=== PATIENT | female | born 1965 | race Caucasian/White ===

== ENCOUNTER 2019-04-27 13:30 | Inpatient (IN) ==
[2019-04-27] MEDS ORDERED: NS 1,000 ML IV ONE ×2 (13:46→14:58)
--- NOTE | 2019-04-27 14:07 | PROVIDER DOCUMENTATION ---
HPI-General Adult - General Chief Complaint: High Blood Sugar Stated Complaint: BS HIGH Time Seen by Provider: 04/27/19 13:42 Source: patient Allergies/Adverse Reactions: Patient Allergies Allergy/AdvReac Type Severity Reaction Status Date / Time No Known Allergies Allergy Verified 04/16/17 09:11 Home Medications: Home Medication List Medication Instructions Recorded Confirmed Last Taken Type Carvedilol 12.5 mg PO BID 01/22/17 04/16/17 04/15/17 History Fluoxetine HCl [Prozac] 80 mg PO DAILY 01/22/17 04/16/17 01/24/17 04:15 History 80 Furosemide 40 mg PO DAILY 01/22/17 04/16/17 01/23/17 04:30 History 40 Levofloxacin [Levaquin] 500 mg PO DAILY #7 tablet 04/16/17 Unknown Rx Naproxen Sodium [Anaprox Ds] 550 mg PO BID #20 tablet 04/16/17 Unknown Rx Cyclobenzaprine [Flexeril] 10 mg PO Q6H PRN #14 tablet 06/30/17 Unknown Rx Hydrocodone/APAP 5 mg/325 mg 10 each PO Q6H PRN PRN 10/27/17 10/27/17 Unknown History [[place]-5] Meloxicam [Mobic] 15 mg PO DAILY #20 tab 10/27/17 Unknown Rx - History of Present Illness -Gen Adult Nature of Presenting Problems: Patient is a 53yo F who presents with c/o high blood sugar. Patient reports she takes Metformin BID for DM2. States she does not monitor her sugars at home. Reports for the past 3 days, she has been feeling fatigued, nauseous, thirsty, and has had to urinate frequently. States she checked her BG 3 days ago and it read over 500. Reports she called her PCP's office and was instructed to increase her Metformin. Reports this morning, she felt "really yucky" and checked her BG and her meter just read "High." Patient reports she called her PCP again who referred her to the ER. Patient denies hx of DKA or having to be hospitalized d/t high blood sugar. Patient denies fever/chills, cough, vomiting/diarrhea, dysuria, CP, or SOB. Location of Pain/Injury: reports: none Pain Radiation: reports: no radiation Quality of Pain: reports: none Severity: reports: moderate Onset/Duration: reports: 3 days ago Timing: reports: still present Context/Activities at Onset: reports: none Modifying Factors: improves with: nothing Associated Symptoms: reports: fatigue, nausea. denies: chest pain, cough, diaphoresis, diarrhea, dizziness, fever/chills, headaches, loss of appetite, sh ortness of breath, vomiting, weakness Similar Symptoms Previously?: No Recently seen or treated by another doctor?: No - Diabetes Related Context Context: reports: high blood sugar Review of Systems - Adult - REVIEW OF SYSTEMS - ADULT Constitutional: reports: no symptoms reported. denies: chills, fever Eyes: reports: no symptoms reported. denies: decreased vision, blurred vision, double vision Ears, Nose, Mouth & Throat: reports: no symptoms reported. denies: ear pain, throat pain Cardiovascular: reports: no symptoms reported. denies: chest pain, palpitations Respiratory: reports: no symptoms reported. denies: cough, shortness of breath Gastrointestinal: reports: see HPI, nausea. denies: abdominal pain, diarrhea, vomiting Genitourinary: reports: see HPI, frequency. denies: dysuria Musculoskeletal: reports: no symptoms reported Integumentary: reports: no symptoms reported Neurological: reports: no symptoms reported. denies: dizziness/vertigo, headache/migraines, paresthesia, syncope Psychiatric: reports: no symptoms reported Endocrine: reports: see HPI, increased thirst, polyuria Past History - Adult - PAST MEDICAL HISTORY-ADULT Review of Records: reports: Nursing Assessment Review, Medications Reviewed Major Childhood Illnesses: reports: denies history Cardiovascular: reports: CAD, CHF, HTN Respiratory: reports: denies history Gastrointestinal: reports: GERD Genitourinary: reports: kidney disease (stage 3 per pt), kidney stones Musculoskeletal: reports: denies history Neurological: reports: denies history Psychiatric: reports: ptsd Endocrine/Immune: reports: Diabetes Diabetes controlled by:: PO Meds Other Conditions: reports: denies history - PRIOR SURGERIES/PROCEDURES Surgical/Procedure History: reports: cholecystectomy, hysterectomy - IMMUNIZATION STATUS Childhood Immunizations: See Nurse Assessment Flu Vaccine: See Nurse Assessment - FAMILY HISTORY Family History: reviewed, not pertinent Physical Exam-General - PHYSICAL EXAM-ADULT Initial Vital Signs Reviewed: Yes - CONSTITUTIONAL General Appearance: appears well, alert, no apparent distress. negative: lethargic, slow to respond, obtunded - EYES Eyes: PERRL/EOMI, pink conjunctivae. negative: EOM palsy, scleral icterus - HEAD, EARS, NOSE, MOUTH & THROAT HENMT: normocephalic/atraumatic, moist mucous membranes - NECK Neck: full range of motion, supple, normal inspection - RESPIRATORY Respiratory: chest non-tender, lungs clear, normal breath sounds, no pleuratic chest pain, no respiratory distress, no accessory muscle use. negative: crackles, rales, rhonchi, stridor, wheezing - CARDIOVASCULAR Cardiovascular: regular rate, rhythm, no gallop - GASTROINTESTINAL (ABDOMEN) Abdominal Exam: normal bowel sounds, non tender, soft - MUSCULOSKELETAL Back Exam: normal inspection Extremity: normal range of motion, non-tender, normal gait, normal inspection, pelvis stable - SKIN Integumentary: normal color, warm/dry. negative: cyanosis, jaundice, pallor - NEUROLOGIC Neurologic: grossly normal. negative: abnormal gait, aphasia, EOM palsy - PSYCHIATRIC Psych/Mental Status: normal mood/affect, normal thought content, normal thought process, oriented x 3 Progress - PLAN OF CARE/RESULTS Progress/Plan/Lab Results: Vital Signs - 8 hr 04/27/19 13:33 Temperature 98.4 F Pulse Rate 77 Respiratory Rate 18 Blood Pressure 136/87 O2 Sat by Pulse Oximetry 93 L Orders Category Date Time Status Finger Stick Blood Sugar (ED) DIRECTED Care 04/27/19 13:47 Active CHEST-2 VIEWS [RAD] Stat Exams 04/27/19 13:46 Ordered ABG [RESP] Routine Lab 04/27/19 13:46 Ordered CBC WITH DIFF [HEME] Stat Lab 04/27/19 13:46 Uncollected COMPREHENSIVE METABOLIC PANEL [CHEM] Stat Lab 04/27/19 13:46 Uncollected URINALYSIS [URINALYSIS] Stat Lab 04/27/19 13:46 Uncollected 0.9% Sodium Chloride Inj [Ns] 1,000 ml Med 04/27/19 13:46 Active IV 999 mls/hr EKG [EKG] Stat Ther 04/27/19 13:46 Ordered Lab results and plan of care discussed with patient who verbalizes understanding. Patient notified of need for admission for hyperglycemia, dehydration, and hyponatremia. She verbalizes understanding and agrees with plan. Result Diagrams: 04/27/19 14:03 04/27/19 14:03 - XRAY 1 XRAY: Bilateral XRAY Study: Chest Impression: See EMR Report ([facility] - [address], [address], [place] [address] [facility] - [address] , [place] [address] Department of Imaging Patient: DIRK CONTRERAS Date: 04/27/19MR#: [id number] : 1965ADM Status: PRE ERAcct#: [id number] Age/Sex: 53/FRoom/Bed: Loc: ED Ordering Physician: Ritu Lanier Family Physician: Brad Tinajero MD Reason for Procedure: Hyperglycemia ___ Signed EXAM: CHEST-2 VIEWS 04/27/2019 HISTORY: Hyperglycemia TECHNIQUE: PA and lateral chest COMMENT: There is no evidence of acute cardiac or pulmonary disease. Compared to 06/30/2017 there has been no significant change. IMPRESSION: No evidence of acute disease. Electronically signed by Damien Delarosa 04/27/2019 2:23 PM 04/27/19 1423 Interpreting Physician: Damien Delarosa MD Dictated Date/Time: 04/27/19 1422 cc: Ritu Lanier; Brad Tniajero MD) - CONSULTS/PCP/HOSPITALIST Notification #1 *Consult/PCP/Hospitalist*: BOLIVAR Hodges Time Discussed: 15:35 Reason/Comments: Hyperglycemia, Hyponatremia, Dehydration Consult Disposition: Admit #2 Consult: MD Isaias Time Discussed: 15:57 Reason/Comments: Pt requested he be notified of her admission Consult Disposition: other (Will consult if needed) Departure - Departure Date of Disposition Decision: 04/27/19 Time of Disposition Decision: 15:37 DIAGNOSIS: Dehydration, Hyperglycemia, Hyponatremia Disposition: ADMITTED INPATIENT 09 Certified Medical Emergency: Emergent Condition: Stable Referrals and Follow-Ups: Brad Tinajero MD [Primary Care Provider] - - Critical Care Note This patient required my direct & personal management of CC.: No Attestation - Physician/ FATMATA Attestation Patient care was provided by Advanced Practice Provider:: Yes Advanced Practice Provider:: Zuri Dixon Advanced Practice Provider documentation review:: The Mid-level provider documentation, treatment plan and medical decision making was reviewed by the physician who agrees with all treatment and medical decision making by the MLP. The physician spent face to face time with patient:: No Advanced Practice Provider documentation review:: Supervising physician onsite and consulted in the evaluation and care of this patient. The physician did not have a face to face encounter with the patient.
[2019-04-27 14:12] LABS: ALLEN TEST NO; BE 1.4 mmoll (-3.0-3.0); BLOOD TYPE ARTERIAL; HCO3-(ACT) 25.8 mmoll (20.0-26.0); METHB 0.8 % (0.0-1.5); O2(CT) 20.9 mL/dL (15.0-23.0); O2HB 90.2 % (95.0-99.0); PCO2(98.6) 46 mmHg (35-45); PO2(98.6) 70 mmHg (60-100); SAMPLE BLOOD; SAO2 96.9 % (95.0-100.0); THB 16.5 g/dL (11.5-17.4); pH(98.6) 7.38 (7.35-7.45)
[2019-04-27 14:13] LABS: URINE SOURCE CLEAN CATCH
[2019-04-27 14:14] LABS: MODALITY ROOM AIR
[2019-04-27 14:19] LABS: BASO# 0.04 X1000 (0.0-0.2); BASO% 0.7 % (0.0-0.8); EOS# 0.09 X1000 (0.0-0.7); EOS% 1.7 % (0.0-10.0); HEMATOCRIT 47.3 % (37.0-47.0); HEMOGLOBIN 16.4 g/dL (12.0-16.0); LYMPH# 1.74 X1000 (1.2-3.4); LYMPH% 32.2 % (20.5-51.1); MCHC 34.7 g/dL (33-37); MCV 86.6 FL (81-99); MONO# 0.42 X1000 (0.11-0.59); MONO% 7.8 % (1.7-9.3); MPV 12.9 FL (7.4-10.4); NEUT# 3.12 X1000 (1.4-6.5); NEUT% 57.6 % (42.2-75.2); PLT 178 X1000 (130-400); RBC 5.46 XMIL (4.2-5.4); RDW 12.6 % (11.5-14.5); WBC 5.41 X1000 (4.8-10.8)
[2019-04-27 14:20] LABS: BILIRUBIN URINE NEGATIVE (NEGATIVE); BLOOD URINE NEGATIVE (NEGATIVE); COLOR STRAW; GLUCOSE URINE >1000 mg/dL (NEGATIVE); KETONE URINE NEGATIVE (NEGATIVE); LEUKOCYTES URINE NEGATIVE (NEGATIVE); NITRITE URINE NEGATIVE (NEGATIVE); PH URINE 5.5; PROTEIN URINE NEGATIVE (NEGATIVE); SP GRAVITY URINE 1.023; TURBIDITY URINE CLEAR (CLEAR); UROBILINOGEN URINE NORMAL (NORMAL)
[2019-04-27 14:22] LABS: UR EPITHELIAL CELLS <10 /HPF (<10); URINE BACTERIA NEGATIVE /HPF; URINE RBC <10 /HPF (<10); URINE WBC <10 /HPF (<10)
--- NOTE | 2019-04-27 14:25 | Diag Imaging Result Doc PS360 ---
EXAM: CHEST-2 VIEWS 04/27/2019 HISTORY: Hyperglycemia TECHNIQUE: PA and lateral chest COMMENT: There is no evidence of acute cardiac or pulmonary disease. Compared to 06/30/2017 there has been no significant change. IMPRESSION: No evidence of acute disease. Electronically signed by Damien Delarosa 04/27/2019 2:23 PM
[2019-04-27 14:54] LABS: ALB/GLOB RATIO 1.3; ALBUMIN 4.4 g/dL (3.5-5.0); CALCIUM 9.9 mg/dL (8.8-10.2); CREATININE 1.5 mg/dL (0.5-0.9); POTASSIUM 3.7 mmol/L (3.5-5.1); TOTAL BILIRUBIN 0.56 mg/dL (0.20-1.00); TOTAL PROTEIN 7.8 g/dL (6.3-8.3)
[2019-04-27] MEDS ORDERED: HUMULIN R IV ONE (14:58)
[2019-04-27] MEDS ORDERED: HUMULIN R 100 UNIT in NS 100 ML IV SCH (16:00)
--- NOTE | 2019-04-27 16:36 | EKG Report ---
Test Performed on : 04/27/2019 4:32:20 PM Test Reason : DKA Blood Pressure : / mmHG Vent. Rate : 054 BPM Atrial Rate : 054 BPM P-R Int : 140 ms QRS Dur : 092 ms QT Int : 450 ms P-R-T Axes : 032 055 079 degrees QTc Int : 426 ms Sinus bradycardia. with sinus arrhythmia. Nonspecific ST and T wave abnormality Abnormal ECG When compared with ECG of 22-JAN-2017 13:12, premature ventricular complexes. are no longer present Vent. rate has decreased BY [address] no longer depressed in Anterior leads T wave inversion less evident in Anterolateral leads Unconfirmed Result
--- NOTE | 2019-04-27 17:29 | ED EKG INTERP ---
This chart was entered by Stefanie Moreland Scribe, acting as scribe for Lincoln Marinelli MD. EKG Interpretation - EKG Time of EKG reading by physician:: 16:32 EKG Read and Signed by:: Lincoln Marinelli EKG Interpretation (*Must complete 3 of following elements*): Abnormal Rate: 54 Rhythm: sinus bradycardia with sinus arrhythmia [place]: normal [place] Interval: normal Comments: nonspecific ST and T wave abnormality. Attestation - Physician/ FATMATA Attestation Patient care was provided by Advanced Practice Provider:: Yes Advanced Practice Provider:: Zuri Dixon Advanced Practice Provider documentation review:: The Mid-level provider documentation, treatment plan and medical decision making was reviewed by the physician who agrees with all treatment and medical decision making by the P. The physician spent face to face time with patient:: No Advanced Practice Provider documentation review:: Supervising physician onsite and consulted in the evaluation and care of this patient. The physician did not have a face to face encounter with the patient. This chart was documented by the indicated scribe, (Stefanie Moreland Scribe) and accurately reflects the services I performed and decisions made by , Lincoln Marinelli MD, as attested by the provider's signature.
[2019-04-27] MEDS ORDERED: NICODERM PATCH TD PRN (19:15)
--- NOTE | 2019-04-27 19:40 | HISTORY AND PHYSICAL ---
HISTORY OF PRESENT ILLNESS: This is a 53-year-old female with type 2 diabetes, who came in from home with elevated blood sugar. She is a diabetic patient. She sees Dr. Brad Tinajero as an outpatient. She also sees Dr. Esparza for chronic renal failure, although her kidney function she does have some mild insufficiency. She is stage 3 actually, but in any case the patient has noted hyperglycemia in the last 24 hours. She says she is usually controlled on metformin, but I question taking that with her renal failure. It may not be a little risky, but her previous kidney function, we do not have much data here. It was in 2017. She came in. She has had nausea, vomiting. No fevers, no chills. She is uncomfortable, and came in for evaluation. She is not in DKA. She has hyperosmolar nonketotic hyperglycemia and that is what she came in for. In any case, her sugar when she initially came in was 850. Her creatinine was 1.5. Her gap was only 16, but her bicarbonate is 26. Serum ketones, I am not really sure they were done. She is not acidotic, so this was felt to be just plain hyperglycemia, but she is definitely hemoconcentrated. In any case the patient was admitted for HONK, although she is not comatose at this point. PAST MEDICAL HISTORY: 1. Chronic renal failure. At this point she is stage 3B. 2. Type 2 diabetes. At this point noninsulin-dependent. 3. Degenerative joint disease of the spine. PAST SURGICAL HISTORY: 1. She has had a cholecystectomy. 2. Hysterectomy. FAMILY HISTORY: Positive for diabetes and endstage renal in her mother. SOCIAL HISTORY: No tobacco or ethanol. She has a . A 1/9-izsy-r-day smoker. No drugs. No alcohol. ALLERGIES: No known drug allergies. MEDICATIONS: She is on several but these have not been verified. Some of these have not been in a while, and she is not currently on metformin so I am not sure how compliant she is. REVIEW OF SYSTEMS: She reports about a 3-pound weight loss in the last month. No chest pain. No shortness of breath. Nausea and vomiting as described. No dysuria, but she has polyuria and polydipsia. Not polyphasia, per se. Otherwise negative 10-point review of systems. PHYSICAL EXAMINATION: VITAL SIGNS: Blood pressure is 136/87, heart rate 77, respiratory rate 18, temperature 98.4 degrees, 93% on room air. CARDIOVASCULAR: Regular rate and rhythm. PULMONARY: Bilateral breath sounds, clear to auscultation. GASTROINTESTINAL: Soft, nontender, nondistended. Bowel sounds are positive. LABORATORY DATA: White count is 5, hemoglobin and hematocrit 16 and 47. Sodium 125, creatinine 1.5, sugar 855. AST and ALT of 58 and 126. Urine was unremarkable except for glucosuria. DIAGNOSTIC DATA: Chest x-ray clear. ASSESSMENT AND PLAN: Problem list: 1. Hyperglycemia, hyperosmolar, without evidence of ketosis; hyperosmolar nonketotic state. We will continue intravenous fluids, intravenous insulin until her sugar is under more acceptable control, in the 200 range, and then convert her to subcutaneous insulin. Work on dietary control and educating on insulin usage. 2. Erythrocytosis, most likely associated with her polycythemia associated with hemoconcentration. We will continue fluids and follow. 3. Acute kidney injury, likely related to dehydration and uncontrolled diabetes. We will continue to monitor. Get urine electrolytes. 4. I am going to get an ultrasound tomorrow because she also has an elevation in her liver enzymes. Rule out hepatitis, although steatohepatitis is most likely common issue there. We will continue to follow. cc: MD Brad Palmer MD
[2019-04-27] MEDS ORDERED: ZOFRAN IV PRN (20:47)
[2019-04-27] MEDS ORDERED: NS 1,000 ML IV SCH (20:47)
[2019-04-27] MEDS ORDERED: TYLENOL PO PRN (20:47)
--- NOTE | 2019-04-27 20:49 | Diag Imaging Result Doc PS360 ---
EXAM: ABDOMEN FLAT/UPRIGHT INDICATION: swelling TECHNIQUE: 2 views COMPARISON: None. FINDINGS: There are unremarkable bowel gas and stool patterns. There is no obstructive bowel pattern. There is no evidence of large volume free abdominal gas. There is no evidence of organomegaly. There is a calcific density that projects over the lower pole the right kidney that probably represents an intrarenal stone. IMPRESSION: Right nephrolithiasis. No definite acute pathology by plain radiograph. Electronically signed by Frederick Lowe 04/27/2019 8:47 PM
[2019-04-27] MEDS ORDERED: D5 1/2 NS 1,000 ML IV SCH (21:30)
[2019-04-27] MEDS ORDERED: LANTUS INSULIN SUBQ ONE (23:13)
[2019-04-27] MEDS: NS 1,000 ML IV SCH (23:39)
[2019-04-27] MEDS: HUMALOG SUBQ SCH (23:39)
[2019-04-28 02:40] LABS: UR CREAT RANDOM 153.2 mg/dL (11-20)
[2019-04-28 02:41] LABS: UR AMPHETAMINES QUAL NONE DETECTED (NONE DETECT); UR BARBITUATES QUAL NONE DETECTED (NONE DETECT); UR BENZODIAZEPIN QUAL NONE DETECTED (NONE DETECT); UR CANNABINOIDS QUAL NONE DETECTED (NONE DETECT); UR COCAINE QUAL NONE DETECTED (NONE DETECT); UR METHADONE QUAL NONE DETECTED (NONE DETECT); UR OPIATES QUAL PRESUMPTIVE POSITIVE (NONE DETECT); UR OXYCODONE QUAL NONE DETECTED (NONE DETECT); UR PCP QUAL NONE DETECTED (NONE DETECT)
[2019-04-28] MEDS: HUMALOG SUBQ SCH ×5 (04:01→20:20)
[2019-04-28 05:19] LABS: BASO# 0.01 X1000 (0.0-0.2); BASO% 0.2 % (0.0-0.8); EOS# 0.09 X1000 (0.0-0.7); HEMATOCRIT 42.1 % (37.0-47.0); HEMOGLOBIN 14.5 g/dL (12.0-16.0); IMM GRAN# 0.02 X1000 (0.0-0.04); IMM GRAN% 0.4 % (0.0-0.5); LYMPH# 1.54 X1000 (1.2-3.4); LYMPH% 33.9 % (20.5-51.1); MCH 30.4 PG (27-31); MCHC 34.4 g/dL (33-37); MCV 88.3 FL (81-99); MONO# 0.28 X1000 (0.11-0.59); MONO% 6.2 % (1.7-9.3); MPV 12.2 FL (7.4-10.4); NEUT% 57.3 % (42.2-75.2); PLT 149 X1000 (130-400); RBC 4.77 XMIL (4.2-5.4); RDW 12.9 % (11.5-14.5); WBC 4.54 X1000 (4.8-10.8)
[2019-04-28 05:29] LABS: HEMOGLOBIN A1C 12.7 % (4.8-6.0)
[2019-04-28 05:40] LABS: AGAP 9; BUN 13 mg/dL (8-22); CALCIUM 8.1 mg/dL (8.8-10.2); CHLORIDE 102 mmol/L (98-107); COSMO 283; CREATININE 0.9 mg/dL (0.5-0.9); ESTIMATED GFR > 60; GLUCOSE 227 mg/dL (70-104); POTASSIUM 3.4 mmol/L (3.5-5.1); SODIUM 138 mmol/L (136-145); TCO2 27 mmol/L (25-35)
[2019-04-28] MEDS: NS 1,000 ML IV SCH (06:36)
[2019-04-28] MEDS ORDERED: NORCO-5 PO PRN (08:49)
[2019-04-28] MEDS ORDERED: GLUCOPHAGE PO SCH (09:00)
[2019-04-28] MEDS ORDERED: LASIX PO SCH (09:00)
[2019-04-28] MEDS: NORCO-10 PO SCH ×3 (09:58→17:50)
--- NOTE | 2019-04-28 14:33 | Diag Imaging Result Doc PS360 ---
EXAM: US ABDOMEN-COMPLETE 04/28/2019 HISTORY: abdominal pain TECHNIQUE: Abdominal ultrasound COMMENT: There is hyperechoic. There is antegrade flow in the portal vein. The common bile duct is not distended at 3 mm. The liver is hyperechoic. The spleen is not enlarged. The kidneys are without evidence of hydronephrosis or mass. The aorta and inferior vena cava and pancreas are not well demonstrated. The patient ate lunch. The gallbladder is surgically absent. IMPRESSION: Limited study due to the patient's body habitus and postprandial state. Electronically signed by Damien Delarosa 04/28/2019 2:31 PM
[2019-04-28] MEDS ORDERED: NS 1,000 ML IV SCH (14:58)
--- NOTE | 2019-04-28 15:19 | PROGRESS NOTE ---
DATE: 04/28/2019 SUBJECTIVE: The patient has no major complaints. Sugars are better, although still in the 200 range. OBJECTIVE: Blood pressure 117/75, heart rate 55, respiratory rate 12, temperature 98 degrees, 98% on room air.Cardiovascular: Regular rate and rhythm. Pulmonary: Bilateral breath sounds clear to auscultation. GI: Soft, nontender, nondistended. Bowel sounds are positive. LABORATORY DATA: White count 4, hemoglobin and hematocrit 14 and 42, platelets 149,000. Potassium 3.4 A1c is 12.7. Last sugar is down to 227. Last 2 sugars have been below 200. PROBLEM LIST: 1. Hyperosmolar nonketotic hyperglycemia. Her sugars are better. I do not think we will be able to control this just with oral agents, but I have resumed her metformin and gone up and I have started Lantus at night 10 units, it can be the night or the day and we will could continue sliding scale. If sugars are stable tomorrow she should be able to go home. 2. Acute kidney injury. She reports chronic renal failure, but after hydration, her kidney function is fine, so she can go on metformin #1 and will just have to be careful with Lasix and things of that nature, but she is eating and drinking okay. We will get a workup as well, but I think she is stable enough to go to the floor if she completely stabilizes. Again if sugars are ideally below 200 but at least in 200 range I think she could probably go home tomorrow. cc: Cosmo Martins MD
[2019-04-28] MEDS: KLOR-CON PO SCH ×2 (15:34→20:09)
[2019-04-28] MEDS: PROZAC PO SCH (15:34)
[2019-04-28] MEDS: COREG PO SCH ×2 (15:34→20:10)
[2019-04-28] MEDS: GLUCOPHAGE PO SCH (17:50)
[2019-04-28] MEDS ORDERED: LANTUS INSULIN SUBQ SCH (21:00)
[2019-04-29 06:01] LABS: BASO# 0.01 X1000 (0.0-0.2); BASO% 0.2 % (0.0-0.8); EOS# 0.12 X1000 (0.0-0.7); EOS% 2.9 % (0.0-10.0); HEMATOCRIT 42.8 % (37.0-47.0); HEMOGLOBIN 14.2 g/dL (12.0-16.0); IMM GRAN# 0.02 X1000 (0.0-0.04); IMM GRAN% 0.5 % (0.0-0.5); LYMPH# 1.87 X1000 (1.2-3.4); LYMPH% 45.1 % (20.5-51.1); MCH 30.1 PG (27-31); MCHC 33.2 g/dL (33-37); MCV 90.9 FL (81-99); MONO% 7.2 % (1.7-9.3); NEUT# 1.83 X1000 (1.4-6.5); NEUT% 44.1 % (42.2-75.2); PLT 130 X1000 (130-400); RBC 4.71 XMIL (4.2-5.4); RDW 13.5 % (11.5-14.5); WBC 4.15 X1000 (4.8-10.8)
[2019-04-29 06:34] LABS: AGAP 12; BUN 11 mg/dL (8-22); CALCIUM 8.3 mg/dL (8.8-10.2); CHLORIDE 105 mmol/L (98-107); COSMO 285; CREATININE 0.9 mg/dL (0.5-0.9); ESTIMATED GFR > 60; GLUCOSE 239 mg/dL (70-104); POTASSIUM 3.6 mmol/L (3.5-5.1); SODIUM 139 mmol/L (136-145); TCO2 22 mmol/L (25-35)
[2019-04-29] MEDS: HUMALOG SUBQ SCH ×4 (06:34→21:12)
[2019-04-29] MEDS: PROZAC PO SCH (08:01)
[2019-04-29] MEDS: KLOR-CON PO SCH (08:02)
[2019-04-29] MEDS: COREG PO SCH ×2 (08:02→21:11)
[2019-04-29] MEDS: NORCO-10 PO SCH ×3 (08:02→21:11)
[2019-04-29] MEDS: GLUCOPHAGE PO SCH ×2 (08:08→16:12)
[2019-04-29] MEDS ORDERED: LANTUS INSULIN SUBQ SCH ×2 (09:00→21:00)
--- NOTE | 2019-04-29 10:49 | PROGRESS NOTE ---
DATE: 04/29/2019 SUBJECTIVE: This patient has no major complaints today. The blood sugar is still above 200. I have increased the dose of Lantus from 15 to 30. Hopefully tomorrow I will discharge this patient home. I have stopped the normal saline as well. Kidney function stable. We have already restarted her metformin that she has been taking at home, but she was taking 500 mg twice a day. It has been increased already to 1000 mg twice a day. OBJECTIVE: Vital Signs: Temperature 98.6 degrees, pulse 62, respiratory rate 19, blood pressure 113/73, oxygen saturation 97% on room air. HEENT: Head normocephalic, no trauma. PERRLA. Neck: Supple. No JVD. No masses. Central trachea. Chest: Clear to auscultation. No wheezing. No rales. Abdomen: Soft, nontender, nondistended. No hepatosplenomegaly. Extremities: Trace edema. No clubbing. No cyanosis. Neurological examination: The patient is alert. She is oriented. No focal deficits. LABORATORY: WBC 4.1, hemoglobin 14.2, hematocrit 42.8, platelets 130. Sodium 139, potassium 3.6, chloride 105, bicarbonate 22. BUN 11, creatinine 0.9, glucose 239, calcium 8.3. ASSESSMENT AND PLAN: 1. Hyperosmolar nonketotic hyperglycemia. Blood sugar is still elevated, more than 200. She is feeling better. I will readjust the dose of Lantus from 15 to 30, continue with sliding scale insulin and pattern of blood sugar. 2. Acute kidney injury, resolved. This patient has been not only having polyuria, but also due to the high amount of glucose, she has been taking diuretics at home. She is not exactly sure why she is on furosemide, but as per the patient she gets short of breath if she does not take it. She does not have a history of congestive heart failure that she knows of. 3. Overall, this patient is doing better. Her hemoglobin A1c is really elevated at 12.7. She will go home with insulin and also with metformin likely tomorrow. I want to stabilize the blood sugar a little bit better and follow up with her doctor. cc: Usman Mae MD
[2019-04-30] MEDS: HUMALOG SUBQ SCH ×2 (06:31→11:47)
[2019-04-30] MEDS: NORCO-10 PO SCH ×2 (06:34→11:37)
[2019-04-30 07:39] LABS: AGAP 9; ALB/GLOB RATIO 1.2; ALBUMIN 3.3 g/dL (3.5-5.0); ALKALINE PHOSPHATASE 82 U/L (32-104); BUN 9 mg/dL (8-22); CALCIUM 8.7 mg/dL (8.8-10.2); CHLORIDE 108 mmol/L (98-107); COSMO 284; CREATININE 0.9 mg/dL (0.5-0.9); ESTIMATED GFR > 60; GLUCOSE 169 mg/dL (70-104); GOT 85 U/L (10-30); GPT 94 U/L (10-36); POTASSIUM 3.9 mmol/L (3.5-5.1); SODIUM 141 mmol/L (136-145); TCO2 24 mmol/L (25-35); TOTAL BILIRUBIN 0.32 mg/dL (0.20-1.00)
[2019-04-30 08:14] VITALS: BP 121/71
[2019-04-30] MEDS: GLUCOPHAGE PO SCH (09:41)
[2019-04-30] MEDS: COREG PO SCH (09:41)
[2019-04-30] MEDS: PROZAC PO SCH (09:41)
--- NOTE | 2019-04-30 23:36 | DISCHARGE SUMMARY ---
ADMISSION DATE: 04/27/2019 DISCHARGE DATE: 04/30/2019 DISCHARGE DIAGNOSES: 1. Hyperosmolar nonketotic hyperglycemia. 2. Acute kidney injury, resolved. 3. Obesity with a body mass index of 30.4. PROCEDURES PERFORMED: Chest x-ray dated 04/27/2019, impression: No evidence of acute disease. Abdominal x-ray dated 04/27/2019, impression: Right nephrolithiasis. No definite acute pathology by plain radiograph. Abdominal ultrasound dated 04/28/2019, impression: Limited study due to this patient's body habitus and postprandial state. HOSPITAL COURSE: A 53-year-old, female, with a past medical history of type 2 diabetes, came in and admitted on 04/27/2019, due to elevated blood sugar. She sees Dr. Brad Tinajero as an outpatient and also Dr. Esparza for CKD. She states that she is stage 3. The patient has noted that she has been hyperglycemic for 24 hours and she states that usually it is controlled with metformin. She came in with nausea, vomiting. No fever, no chills. She has hyperosmolar nonketotic hyperglycemia. Initially, her blood sugar was 850. Her creatinine was 1.5, her gap only 16, bicarbonate 26. She was placed on IV fluids and intravenous insulin, and then we stopped the insulin drip and we put her on Lantus. The patient was getting better on a daily basis. We had a really large conversation about diet, exercise, and treatment. Her hemoglobin A1c is clearly elevated at 12.7 or so. So, her blood sugar has been elevated for a little bit. Her acute kidney injury resolved and actually her numbers are normal today. Because of the LFTs, we did an ultrasound, but probably she needs to have one done as an outpatient again because this patient's body habitus made this study to be limited, but we did not see any lesion. Her blood sugar is better controlled. This patient is feeling much better, is tolerating p.o. She is ambulating by herself. Blood sugar today in the morning was 169. She will be discharged home. She states that she cannot afford the insulin Lantus, so it has been switched to insulin 70/30. She will start with 20 units in the morning and 10 units in the afternoon. She will need to go to her primary care doctor to readjust the medications. We will continue with her metformin. Again, her BUN and creatinine have been within normal limits for the past 3 days. PHYSICAL EXAMINATION: Vital signs: Temperature 98.1 degrees, pulse 55, respiratory rate 16, blood pressure 121/71, oxygen saturation 98 on room air. HEENT: Head normocephalic, no trauma. PERRLA. Neck: Supple. No JVD. No masses. Central trachea. Chest: Clear to auscultation. No wheezing or rales. Abdomen: Soft, nontender, nondistended. No hepatosplenomegaly. Extremities: No edema. No clubbing. No cyanosis. Neurological: The patient is alert and oriented x3. No focal deficits. LABORATORY: Sodium 141, potassium 3.9, chloride 108, bicarbonate 24, BUN 9, creatinine 0.9, glucose 169, calcium 8.7. AST 85, ALT 94, alkaline phosphatase 82, albumin 3.3. DISCHARGE MEDICATIONS: 1. Carvedilol 12.5 mg p.o. b.i.d. 2. Prozac 40 mg p.o. daily. 3. Furosemide 40 mg p.o. daily. 4. [place] 10 one tablet p.o. t.i.d. 5. Lantus 30 units subcutaneous at bedtime, but has been changed to 70/30, 20 units in the morning and 10 units in the afternoon, 15 minutes before eating. 6. Metformin 1000 mg p.o. b.i.d. 7. Potassium chloride 20 mEq p.o. b.i.d. TIME DISCHARGING THIS PATIENT: 35 minutes. cc: Usman Mae MD
== END 2019-04-30 12:33 | disposition home or self-care (01) | DRG 638 ==
LOC: SUPCPDRO → ED 13:30 → EDIPHOLD 18:32 → SUATTDRO 18:32 → 3S 20:38 → 4N 04-29 14:20
PROVIDERS: ATTEND Internal Medicine